=== PATIENT | female | born 1975 | race Caucasian/White ===

== ENCOUNTER → 2019-04-27 | Outpatient (CLI) | payer SELFPAY ==
[2019-04-27 15:14] LABS: BASO # 0.1 x10^3/uL (0.0-0.2); BASO % 1 % (0-3); EOS # 0.1 x10^3/uL (0.0-0.7); EOS % 1 % (0-3); HEMATOCRIT 42.5 % (36.0-47.0); HEMOGLOBIN 14.2 g/dL (12.0-15.5); LYMPH # 2.9 x10^3/uL (1.0-4.8); LYMPH % 26 % (24-48); MEAN CORPUSCULAR HEMOGLOBIN 30 pg (25-35); MEAN CORPUSCULAR HGB CONC 34 g/dL (31-37); MEAN CORPUSCULAR VOLUME 90 fL (79-100); MONO # 0.7 x10^3/uL (0.0-1.1); MONO % 6 % (0-9); NEUT # 7.5 x10^3/uL (1.8-7.7); NEUT % 66 % (31-73); PLATELET COUNT 210 x10^3/uL (140-400); RED BLOOD COUNT 4.71 x10^6/uL (3.50-5.40); RED CELL DISTRIBUTION WIDTH 14.7 % (11.5-14.5); WHITE BLOOD COUNT 11.3 x10^3/uL (4.0-11.0)
[2019-04-27 15:30] LABS: ALBUMIN 3.6 g/dL (3.4-5.0); ALBUMIN/GLOBULIN RATIO 0.8 (1.0-1.7); CALCIUM 9.3 mg/dL (8.5-10.1); CREATININE 0.8 mg/dL (0.6-1.0); GFR 78.7; POTASSIUM 4.4 mmol/L (3.5-5.1); TOTAL BILIRUBIN 0.2 mg/dL (0.2-1.0)
--- NOTE | 2019-04-27 15:55 | RAD ---
AP and Lateral Views of the Chest 04/27/2019 2:20 PM Indication: Preoperative Comparison: None Findings: Calcified lymph nodes in the middle lobe. No pneumothorax, pleural effusion, or focal consolidation is seen. Heart size is normal. Bony thorax is intact. Impression: No evidence of acute cardiopulmonary process. Electronically signed by: Juan Alberto Vasquez MD (04/27/2019 3:52 PM) [id number]
== END | disposition home or self-care (01) ==
LOC: SURGPAT 14:05
PROVIDERS: ATTEND Obstetrics & Gynecology
DX: Z01.818 Encounter for other preprocedural examination (principal); F17.200 Nicotine dependence, unspecified, uncomplicated; Z88.8 Allergy status to other drugs, medicaments and biological substances
CPT/HCPCS: 36415; 71046; 80053; 85025

== ENCOUNTER 2019-05-05 05:45 | Observation (INO) | payer SELFPAY ==
[~2019-05-05] VITALS: Ht 171.4 cm; Wt 244.0 kg
[2019-05-05] VITALS (11 sets, daily range): BP systolic 101–133; BP diastolic 61–88
[2019-05-05] MEDS ORDERED: BUPIVACAINE-EPI 0.25%-1:200000 MPF 30 ML VIAL. INJ ONE (06:00)
[2019-05-05] MEDS ORDERED: CLINDAMYCIN 900MG PREMIX 50 ML IV PRN (06:00)
[2019-05-05] MEDS ORDERED: ROCURONIUM 50 MG/5 ML VIAL. ONE (06:42)
[2019-05-05] MEDS ORDERED: ONDANSETRON PF 4 MG/2 ML VIAL. ONE (06:42)
[2019-05-05] MEDS ORDERED: PROPOFOL 20 ML IV ONE (06:42)
[2019-05-05] MEDS ORDERED: DEXAMETHASONE SOD PHOS 4 MG/ML VIAL ONE ×2 (06:42→07:12)
[2019-05-05] MEDS ORDERED: LIDOCAINE 2% PF 5 ML VIAL. ONE (06:42)
[2019-05-05] MEDS ORDERED: PROCHLORPERAZINE 10 MG/2 ML VIAL. IV PRN (07:00)
[2019-05-05] MEDS ORDERED: fentaNYL PF VIAL 100 MCG/2 ML VIAL IV PRN (07:00)
[2019-05-05] MEDS ORDERED: MORPHINE SULFATE 2 MG/ML VIAL. IV PRN ×2 (07:00→10:30)
[2019-05-05] MEDS ORDERED: ONDANSETRON PF 4 MG/2 ML VIAL. IV PRN ×2 (07:00→10:30)
[2019-05-05] MEDS ORDERED: IV RINGERS,LACTATED 1000ML 1,000 ML IV SCH (07:00)
[2019-05-05] MEDS ORDERED: LIDOCAINE 1% PF 2 ML VIAL. ID PRN (07:00)
[2019-05-05] MEDS ORDERED: HYDROmorphone 2 MG/ML VIAL IV PRN (07:00)
[2019-05-05] MEDS ORDERED: ESTROGENS, CONJ VAGINAL CREAM 30GM TUBE. ONE (07:05)
[2019-05-05] MEDS ORDERED: INDIGOTINDISULFONATE SODIUM 40 MG/5 ML AMPUL. ONE (07:06)
[2019-05-05] MEDS ORDERED: KETOROLAC 30 MG/ML VIAL. ONE (07:13)
[2019-05-05] MEDS ORDERED: MIDAZOLAM HCL/PF 2 MG/2 ML VIAL. ONE (07:13)
[2019-05-05] MEDS ORDERED: FAMOTIDINE 20 MG/2 ML VIAL ONE (07:13)
[2019-05-05] MEDS ORDERED: KETAMINE HCL IN NACL, ISO-OSM 50 MG/5 ML SYRINGE ONE (07:13)
[2019-05-05] MEDS ORDERED: fentaNYL PF VIAL 100 MCG/2 ML VIAL ONE ×2 (07:13→11:07)
[2019-05-05] MEDS ORDERED: NEOSTIGMINE METHYLSULFATE 5 MG/5 ML SYRINGE. ONE (09:34)
[2019-05-05] MEDS ORDERED: DESFLURANE > 120 MINUTES IH ONE (09:34)
[2019-05-05] MEDS ORDERED: GLYCOPYRROLATE 1 MG/5 ML VIAL. ONE (09:34)
[2019-05-05] MEDS ORDERED: ZOLPIDEM 5 MG TABLET. PO PRN (10:30)
[2019-05-05] MEDS ORDERED: diphenhydrAMINE 50 MG/ML VIAL IV PRN (10:30)
[2019-05-05] MEDS ORDERED: LACTULOSE 20 GM/30 ML SOLUTION. PO PRN (10:30)
[2019-05-05] MEDS ORDERED: NALOXONE 0.4 MG/ML VIAL. IV PRN (10:30)
[2019-05-05] MEDS ORDERED: CALCIUM CARBONATE 500 MG TAB.CHEW PO PRN (10:30)
[2019-05-05] MEDS ORDERED: 0.9 % SODIUM CHLORIDE 10 ML DISP.SYRIN. IV PRN (10:30)
[2019-05-05] MEDS ORDERED: SIMETHICONE 80 MG TAB.CHEW PO PRN (10:30)
[2019-05-05] MEDS ORDERED: diphenhydrAMINE HCL 25 MG CAPSULE PO PRN (10:30)
[2019-05-05] MEDS ORDERED: oxyCODONE/APAP 5/325 1 TAB TABLET PO PRN (10:30)
[2019-05-05] MEDS ORDERED: MAGNESIUM HYDROXIDE 2,400 MG/30 ML ORAL.SUSP. PO PRN (10:30)
[2019-05-05] MEDS ORDERED: MAG HYDROX/ALUMINUM HYD/SIMETH 30 ML ORAL.SUSP PO PRN (10:30)
--- NOTE | 2019-05-05 10:44 | PDOC ---
BRIEF OPERATIVE NOTE Date: May 05, 2019 Pre-Op Diagnosis DUB Post-Op Diagnosis same plus left sided pelvic adhesions and left ovarian cyst Procedure Performed LAVH, bilateral salpingectomy, left ovarian cystectomy, adhesiolysis Surgeon Dr. Colleen Garner Feather Maker GAUDENCIO Candelario Anesthesiologist Dr. Cruz Anesthesia Type: General Blood Loss 60cc IV Fluid 1300cc Urine Output 75cc clear and concentrated via krishnamurthy Specimens Obtained cervix, uterus, bilateral tubes, left ovarian cyst wall Findings mildly enlarged RV uterus, normal right tube and ovary, left ovary with small benign appearing cyst but adhesed to desc colon and left sidewall Complications none Operative Note [id number] COLLEEN GARNER MD May 05, 2019 10:44
--- NOTE | 2019-05-05 11:09 | PDOC ---
SURGICAL PROGRESS NOTE Subjective Pt doing well. Much better than this morning. Still some pain but has eaten, walked the halls and steady on her feet. Continues to use the restroom without problems. Vital Signs Vital Signs Date Time Temp Pulse Resp B/P (MAP) Pulse Ox O2 Delivery O2 Flow Rate FiO2 05/05/19 10:34 98.9 80 16 119/73 99 Room Air 6 98.9 Simple Mask Labs Laboratory Tests Test 05/05/19 06:08 Bedside Urine HCG, Qualitative Hcg negative (Negative) Laboratory Tests Test 05/05/19 06:08 Bedside Urine HCG, Qualitative Hcg negative (Negative) Assessment/Plan will continue ambulation explained with small hematoma could be normal to see dark blood break up with heat and massage through the suprapubic incision will see what repeat hgb shows if stable and wants to go home could do after that if any significant drop or concerns, could stay one more night and repeat in am needs to shower, ambulate here so make sure ok to go home YESSENIA ENCARNACION MD May 05, 2019 11:09
[2019-05-05] MEDS: fentaNYL PF VIAL 100 MCG/2 ML VIAL IV PRN ×2 (11:10→11:29)
--- NOTE | 2019-05-05 12:00 | OP ---
DATE OF SURGERY: 05/05/2019 PREOPERATIVE DIAGNOSIS: Dysfunctional uterine bleeding. POSTOPERATIVE DIAGNOSES: Dysfunctional uterine bleeding with left ovarian cyst and left pelvic adhesions. SURGERY PERFORMED: Laparoscopic-assisted vaginal hysterectomy, bilateral salpingectomy, left ovarian cystectomy and adhesiolysis. SURGEON: Yessenia Garner MD DATA INPUT CLERK: GAUDENCIO Patterson ANESTHESIOLOGIST: Dr. Martin. ANESTHESIA: General. ESTIMATED BLOOD LOSS: 60 mL. URINE OUTPUT: 75 mL of clear and concentrated via Valentin catheter. INTRAVENOUS FLUIDS: 1300 mL of crystalloid. FINDINGS: A mildly enlarged retroverted uterus. Normal right tube and ovary. Left tube appeared normal but it was adhesed to the ovary which was kind of stuck to the descending colon and pelvic sidewall. The descending colon on the left side was stuck to the left lower pelvic sidewall as well. COMPLICATIONS: None. DESCRIPTION OF PROCEDURE: This patient was taken to the operating room where general anesthesia was placed. The patient was placed in a dorsal lithotomy position in [facility]. The patient's abdomen and vagina were both prepped and draped in the normal sterile fashion and a Valentin catheter had been inserted under sterile technique. Upon my arrival, a timeout was performed. Once everyone agreed, a bivalve speculum was placed in the patient's vagina. A single-tooth tenaculum was used to grasp the anterior lip of the cervix, 10-12 mL of 0.25% Marcaine with epinephrine was used to circumferentially inject around the cervix for both hemodissection and hemostatic purposes later. The Valtchev uterine manipulator was placed through the endocervical os, locked on the single tooth tenaculum and the bivalve speculum was then removed. Top gloves were discarded and changed. Attention was then turned to the abdomen where a small supraumbilical skin incision was made with the scalpel. A curved Marti was used to dissect through the subcuticular layer to the fascia. The 5 mm Visiport was used to directly enter the abdominal cavity. Opening patient pressure was 5-6 mmHg. Carbon dioxide gas was used to then appropriately insufflate the abdominal cavity to maintain a pressure of 15 mmHg. The patient was placed in Trendelenburg position and initially the inside of the abdominal wall looked clear. So at this point, we looked to the patient's left side transilluminating the abdominal wall as well as we could, given body habitus, finding an area clear of any vasculature. I did inject the middle incision before making it and then putting the port in. Now, I am injecting the right and left lateral areas where we were going to go for a total of 12 mL of 0.25% Marcaine and epinephrine between all 3 abdominal port sites. Once that was injected, a small incision was made on that left side and the 5 mm trocar was placed under direct visualization without difficulty. A 4-5 mL of air was placed in the cuff of this to make sure it would not come out. The camera was moved laterally to look at the umbilical port. It was indeed clear. A 4-5 mL of air was placed in this port as well. The camera was moved back to the midline where the right lower quadrant port was placed again, finding an area clear of any vasculature, injecting the skin, making a small incision and placing the trocar in under direct visualization without difficulty. At this point, the right tube and ovary were noted to be normal with no adhesions. The ureter could be seen coursing low in the normal expected area of the pelvis and peristalsing. The uterus was mildly enlarged and retroverted, but the anterior bladder looked good. There were no significant adhesions involving the right tube and ovary or uterus itself; however, the colon was adhesed slightly above the level of the left infundibulopelvic ligament. Tracing that to find the left tube and ovary, it was adhesed slightly under the descending colon. I was able to find the tube gently pull it up and peel off the epiploicae, the filmy adhesions. It was not the actual colon itself. It was the fat pad around it that was adhesed to the left ovary. It was an actually stuck to the sidewall, the colon is on the lower but the ovary was just stuck to the fat of the descending colon. So I could get the left tube and ovary, there was a small cyst on the left ovary that was easily peeled off and the cyst wall was not bleeding. She wished to retain ovaries as she was only 44. So we went above the ovary below the tube and just did a salpingectomy, then crossing the left with the LigaSure. The left utero-ovarian pedicle and the left round ligament were all cauterized and cut with the LigaSure. This was done exactly the same on the right side, elevating the right tube and ovary, going above the ovary, below the tube, doing a salpingectomy, crossing the right uterine ovarian pedicle, cauterizing and cutting with the LigaSure and then the same thing cauterizing and cutting the right round ligament. At this point, I was able to make the bladder flap sharply by elevating it with Maryland's through one port and using the monopolar hook to gently make a cut and peel it down, so the bladder flap was made sharply and then peeled down bluntly. Once the bladder was down, I went back to the right side and obtain the uterine vessels, cauterizing and cutting, then staying inside that pedicle and hugging the cervix and uterus, going down to the level of the uterosacrals. The right side was completely free and done. So at this point, attention was turned to the left side where I made sure we went down and met that bladder flap anteriorly and got it down and then getting the uterine vessels and hugging and staying vertical on the cervix and uterus, down as close to the level of the uterosacral as we could abdominally. The uterus itself was free and blanching and completely mobile. The ovaries were indeed left behind the left tube that was adhesed, did pull off during some of the manipulation and it was placed in the posterior cul-de-sac, but there was no active bleeding; in fact, hardly any bleeding from above, so we took out all instruments and attention was turned below. The single tooth and Valtchev were removed. A weighted speculum was placed in the patient's vagina. Thyroid Jose clamps were placed on the anterior and posterior lips of the cervix respectively. A scalpel was used to make a circumferential incision in the cervix. The suction scanner operator tip was used to just gently push up on the anterior bladder peritoneum, so I could gently peel it off the anterior cervix sharply with a knife and then I took an open Ray-Sherley 4 x 4 to gently push it off the cervix. It went up very easily and we were able to enter the anterior cul-de-sac as well, so a curved Greenlawn was placed here. That 4 x 4 was removed and a curved Greenlawn was placed in the anterior cul-de-sac. The cervix was elevated and the posterior cul-de-sac was sharply entered with curved Mccallum scissors. A #0 Vicryl stitch was used to secure the posterior peritoneum here to the vaginal cuff. Before I even put the stitch and I was able to get to that tube, the left tube detached and I was able to pull it out and passed it off for pathology and then I put a #0 Vicryl stitch in, securing the posterior peritoneum to the vaginal cuff, tying it and tagging it with a curved Marti clamp and cutting and passing the needle off. The short weighted speculum was removed and replaced with the long weighted Grace speculum in the posterior cul-de-sac. Curved Deisy clamps x 2 were placed on the patient's left uterosacral ligament where they were doubly clamped with curved Deisy's, cut with curved Mccallum scissors and suture ligated x 2 with 0 Vicryl. Second one was taken through the vaginal cuff, securing uterosacral ligament to the vaginal cuff. After it was tied, it was tagged with a straight Marti and the needle was cut and passed off. This was done exactly the same on the patient's right side. Double clamping the uterosacrals with curved Deisy's, cutting with curved Mccallum scissors and suture ligating x 2 with 0 Vicryl and then taking the second one through the vaginal cuff on the right side, tagging it with a straight Marti clamp and cutting and passing the needle off. The remaining pedicle on both sides, but starting on the patient's left again was delineated with the mixture and the vaginal LigaSure was used to cauterize and cut the remaining pedicle. The left side was free. This was done exactly same on the right. The mixture was taken around the remaining pedicle through the cardinal or broad ligament. It was cauterized with the vaginal LigaSure and cut, and there was no active bleeding. Cervix, uterus and other tube were delivered in total. Again, remember the left one came out detached, it was already passed off. A sponge stick was used to examine the pedicles, they were hemostatic. I could not get up as high as the anterior bladder peritoneum as it was high, so I just kind of went low right inside the cuff, took a 2-0 Vicryl through the right inside the vaginal cuff. The left uterosacral ligament, posterior peritoneum and right uterosacral ligament, thus closing the peritoneum in a pursestring like fashion. Once this was done, the right and left uterosacral tags were clipped and the cuff was closed in an anterior to posterior running locked fashion with a full length 2-0 Vicryl. Once this was done, all sponge, lap and needle counts were correct x 2 below and all gloves were discarded and changed, and attention was turned back above for a second look. Upon initial inspection, there was no active bleeding. The right and left pericolic gutters were clear. There was just some slight oozing from the middle part of the posterior cuff, but the bladder peritoneum looked good, the right ovary looked good. This was actually when I performed the cystectomy. I left it alone until the end and I went ahead and decided since it was take to peel it off. I was able to peel off the cyst wall and remove it through the right lower quadrant port. I did place Tisseel and Michael over the cyst wall and it was hemostatic. I did place Tisseel over the vaginal cuff as well and again the right ovary, the bladder, the cuff looked good but there was a small drip very, very, very small from the posterior cuff, so I went ahead and got Michael and placed it on this with excellent results and just went ahead and placed Michael. That is when I put Michael over the ovarian cyst wall or the remaining ovary where the cyst wall was removed on the left as well, but it peeled off nicely and it was all passed off for permanent pathology as well. Once all this was done, it was hemostatic. Gas was released from the left lower quadrant port, it was removed. There was a very slight rundown upon initial removal. I looked at it several times, went back and forth, pushed on it and there was no active bleeding. I even released gas and watched it, and there was no active bleeding. Reinsufflated the gas, deflated the balloon on the right side to get out, it was completely hemostatic and looked back at the vaginal cuff. It remained hemostatic with a white powdery Michael, looked back at the left side with no continued rundown at all. Edges were dry, so I deflated the cuff on the middle and gas was released from the supraumbilical port. Once this was done, all three port sites were closed with 4-0 nylon and the patient is being awakened from anesthesia. YESSENIA GARNER MD DR: Giulia JOB#: [id number] / [id number]
--- NOTE | 2019-05-05 13:10 | NUR ---
Patient stated she smokes 1 1/2 packs of cigarettes per day, refuses cessation counseling, also refuses any kind of nicotine replacement, like nicotine patch, gum, lozenges, etc.
[2019-05-05] MEDS: HYDROcodone/APAP 5/325MG 1 TAB TABLET PO PRN ×2 (13:19→22:04)
[2019-05-06] VITALS: BP 123/69
[2019-05-06] MEDS: HYDROcodone/APAP 5/325MG 1 TAB TABLET PO PRN ×2 (02:10→08:03)
[2019-05-06 04:02] LABS: CALCIUM 8.8 mg/dL (8.5-10.1); CREATININE 0.7 mg/dL (0.6-1.0); GFR 91.8; POTASSIUM 4.9 mmol/L (3.5-5.1)
[2019-05-06 07:00] VITALS: BP 119/73
--- NOTE | 2019-05-06 08:52 | PDOC ---
SURGICAL PROGRESS NOTE Subjective Doing well without complaints. Scant vag spotting with urination. Tolerating regular diet without n/v. Voiding without catheter, ambulating well, passing gas and has already even had a small stool. Wants to go home Vital Signs Vital Signs Date Time Temp Pulse Resp B/P (MAP) Pulse Ox O2 Delivery O2 Flow Rate FiO2 05/06/19 08:03 16 96 Room Air 05/06/19 00:00 97.4 49 123/69 (87) 97.4 05/05/19 20:00 2.0 I&O Intake and Output 05/06/19 07:00 Intake Total 760 ml Output Total 485 ml Balance 275 ml Intake Oral 100 ml IV Total 660 ml Output Urine Total 425 ml Estimated Blood Loss 60 ml PATIENT HAS A CRUZ: No General: Alert, Oriented X3, Cooperative, No acute distress HEENT: Atraumatic Heart: Regular rate Abdomen: Soft, No tenderness, Other (all port sites c/d/i bandages removed) Extremities: No clubbing, No cyanosis, No edema, No tenderness/swelling Skin: No rashes, No breakdown Neuro: Normal speech Psych/Mental Status: Mental status NL, Mood NL Labs Laboratory Tests Test 05/05/19 06:08 05/06/19 03:15 Bedside Urine HCG, Qualitative Hcg negative (Negative) Hematocrit 37.4 % (36.0-47.0) Sodium Level 142 mmol/L (136-145) Potassium Level 4.9 mmol/L (3.5-5.1) Chloride Level 109 mmol/L (98-107) Carbon Dioxide Level 26 mmol/L (21-32) Anion Gap 7 (6-14) Blood Urea Nitrogen 10 mg/dL (7-20) Creatinine 0.7 mg/dL (0.6-1.0) Estimated GFR (Cockcroft-Gault) 91.8 Glucose Level 118 mg/dL (70-99) Calcium Level 8.8 mg/dL (8.5-10.1) Laboratory Tests Test 05/06/19 03:15 Hematocrit 37.4 % (36.0-47.0) Sodium Level 142 mmol/L (136-145) Potassium Level 4.9 mmol/L (3.5-5.1) Chloride Level 109 mmol/L (98-107) Carbon Dioxide Level 26 mmol/L (21-32) Anion Gap 7 (6-14) Blood Urea Nitrogen 10 mg/dL (7-20) Creatinine 0.7 mg/dL (0.6-1.0) Estimated GFR (Cockcroft-Gault) 91.8 Glucose Level 118 mg/dL (70-99) Calcium Level 8.8 mg/dL (8.5-10.1) I have reviewed the following labs, vitals, nursing Cardiovascular: No pertinent hx GI: No pertinent hx Heme/Onc: No pertinent hx Rheumatologic: No pertinent hx Assessment/Plan POD#1 s/p LAVH/bilateral salpingectomy/left ovarian cystectomy/adhesiolysis Routine PO care d/c to home later today NPV x 6 weeks light/limited activity x 2 weeks keep scheduled follow up appt next week with me NO driving on narcotic pain meds already has hydrocodone filled at home call or return sooner for any other questions or concerns not limited to but including pain unrelieved with pain meds, increased or unexplained vaginal bleeding or T>100.4 YESSENIA ENCARNACION MD May 06, 2019 08:52
--- NOTE | 2019-05-06 08:55 | PDOC3 ---
Discharge Summary Visit Information Date of Admission: May 05, 2019 Date of Discharge: May 06, 2019 Final Diagnosis DUB, left ovarian cyst, adhesions Brief Hospital Course Allergies Allergies Coded Allergies Type Severity Reaction Last Updated Verified naproxen Allergy Severe Shortness of Air 05/05/19 Yes cephalexin Allergy Intermediate 04/27/19 Yes Vital Signs Vital Signs Date Time Temp Pulse Resp B/P (MAP) Pulse Ox O2 Delivery O2 Flow Rate FiO2 05/06/19 08:03 16 96 Room Air 05/06/19 00:00 97.4 49 123/69 (87) 97.4 05/05/19 20:00 2.0 Lab Results Laboratory Tests Test 05/05/19 06:08 05/06/19 03:15 Bedside Urine HCG, Qualitative Hcg negative (Negative) Hematocrit 37.4 % (36.0-47.0) Sodium Level 142 mmol/L (136-145) Potassium Level 4.9 mmol/L (3.5-5.1) Chloride Level 109 mmol/L (98-107) Carbon Dioxide Level 26 mmol/L (21-32) Anion Gap 7 (6-14) Blood Urea Nitrogen 10 mg/dL (7-20) Creatinine 0.7 mg/dL (0.6-1.0) Estimated GFR (Cockcroft-Gault) 91.8 Glucose Level 118 mg/dL (70-99) Calcium Level 8.8 mg/dL (8.5-10.1) Laboratory Tests Test 05/06/19 03:15 Hematocrit 37.4 % (36.0-47.0) Sodium Level 142 mmol/L (136-145) Potassium Level 4.9 mmol/L (3.5-5.1) Chloride Level 109 mmol/L (98-107) Carbon Dioxide Level 26 mmol/L (21-32) Anion Gap 7 (6-14) Blood Urea Nitrogen 10 mg/dL (7-20) Creatinine 0.7 mg/dL (0.6-1.0) Estimated GFR (Cockcroft-Gault) 91.8 Glucose Level 118 mg/dL (70-99) Calcium Level 8.8 mg/dL (8.5-10.1) Brief Hospital Course Ms. Mullins is a 44 old female who presented with DUB. She underwent and LAVH with bilateral salpingectomy yesterday and was found to have a left ovarian cyst so did cystectomy and adhesions so also adhesiolysis was performed. She has had an unremarkable postoperative course and remained AFVSS, hct this am good, ambulating well, voiding without catheter, tolerating regular diet and passing gas. Pt wants to go home Assessment Assessment POD#1 s/p LAVH/bilateral salpingectomy/left ovarian cystectomy/adhesiolysis Routine PO care d/c to home later today NPV x 6 weeks light/limited activity x 2 weeks keep scheduled follow up appt next week with me NO driving on narcotic pain meds already has hydrocodone filled at home call or return sooner for any other questions or concerns not limited to but including pain unrelieved with pain meds, increased or unexplained vaginal bleeding or T>100.4 Discharge Information Scheduled Info (No Known Medications Prior To Admisstion) Each, 1 EACH MC DAILY for NA, (Reported) Entered as Reported by: SCOTTY JENKINS on 04/27/19 [id number] Last Action: Reviewed on 05/05/19624 by SCOTTY JENKINS Patient Instructions Patient Instructions POD#1 s/p LAVH/bilateral salpingectomy/left ovarian cystectomy/adhesiolysis Routine PO care d/c to home later today NPV x 6 weeks light/limited activity x 2 weeks keep scheduled follow up appt next week with me NO driving on narcotic pain meds already has hydrocodone filled at home call or return sooner for any other questions or concerns not limited to but including pain unrelieved with pain meds, increased or unexplained vaginal bleeding or T>100.4 YESSENIA ENCARNACION MD May 06, 2019 08:55
--- NOTE | 2019-05-06 10:05 | NUR ---
Discharge Note: DIPAK HOBBS Discharge instructions and discharge home medications reviewed with Patient and a copy given. All questions have been answered and understanding verbalized. The following instructions and handouts were given: Discharge and F/U Instructions Discontinued lines and drains: Left Peripheral IV removed, Catheter intact. Patient discharged to Home with Self-Care via Family Member Private Vehicle
--- NOTE | 2019-05-09 19:07 | PATHOLOGY ---
[facility] Accession Number: [id number] . 01 Material submitted: . uterus - UTERUS, BILATERAL FALLOPIAN TUBES AND OVARIAN CYST WALL . 01 Clinical history: . Dysmenorrhea, menorrhagia, dysfunctional uterine bleeding . 02 Diagnosis: "Uterus, bilat fallopian tubes and ovarian cyst wall", hysterectomy and ovarian cystectomy: - Cervix with mild chronic cervicitis. - Endometrium with secretory pattern. - Myometrium with minimal histologic alterations. - Fallopian tubes, bilateral, with minial histologic alterations. - Ovarian cyst wall with scant ovarian stroma showing hemorrhagic corpus luteal cyst. (CLW:yves; 05/09/2019) QMS 05/09/2019 1320 Local . 02 Electronically signed: . Vikki Knott MD, Pathologist NPI- [id number] . 01 Gross description: . The specimen is received in formalin, labeled "Lovely Mullins, uterus, bilateral fallopian tubes, ovarian cyst wall" and consists of a 80 g uterus with attached cervix measuring 9.2 x 5.0 x 3.8 cm. Attached are the bilateral fimbriated fallopian tubes measuring 2.6 cm in length and 0.5 cm in diameter and 3.9 cm in length and 0.6 cm in diameter. Also received are 2 orange-espinoza fragments of tissue measuring 2.5 x 2.0 x 0.6 cm. The uterine serosa is pink-espinoza, smooth, and shiny. The slitlike 1.1 cm cervical os is surrounded by focally hemorrhagic espinoza ectocervical mucosa. The specimen is bivalved revealing a corrugated endocervical canal measuring 3.0 cm. The endometrial cavity is triangular measuring 4.2 cm in length and 2.4 cm in width which is lined by pink-red endometrium measuring 0.1-0.3 cm. The myometrium is pink-espinoza measuring up to 2.1 cm with no masses or lesions. . The shorter fallopian tube segment is purple, smooth, shiny. The longer fallopian tube segment is a ragged beth-espinoza. Sectioning each reveals a well-defined lumen and no gross lesions. Sectioning the 2 orange espinoza segment of tissue 2 orange cut surfaces. Clinical Science Consultant sections are submitted as follows: . A1: Anterior cervix A2: Posterior cervix A3: Anterior endomyometrium A4: Posterior endomyometrium A5: Longer fallopian tube A6: Bruner fallopian tube A7: Additionally received segments of orange tissue (SDY; 05/06/2019) SYU/SYU 05/06/2019 1527 Local . 02 Pathologist provided ICD-10: N72, N83.10, N94.6, N92.0 . 02 CPT . 844368 Specimen Comment: A courtesy copy of this report has been sent to [phone] Specimen Comment: Report sent to Performed at: 01 [facility] [address] [facility] [address], [place] [id number] MD Faraz Lynch MD Phone: [phone] Performed at: 02 [facility] [address] [place], [place] [id number] MD Anjel Estrada MD Phone: [phone]
== END 2019-05-06 09:58 | disposition home or self-care (01) ==
LOC: SURG 05:45 → EDUNIT# 07:30 → 3 NORTH 11:41
PROVIDERS: ADMIT Obstetrics & Gynecology; ATTEND Obstetrics & Gynecology
DX: N93.8 Other specified abnormal uterine and vaginal bleeding (principal); N83.202 Unspecified ovarian cyst, left side; Z90.710 Acquired absence of both cervix and uterus
CPT/HCPCS: 36415; 58552; 80048; 81025; 85014; 86850; 86900; 86901; 88307; A7015; G0378; G0379; J1100; J1885; J1956; J2001; J2250; J2405; J2704; J2710; J3010; J3490; J7030; J7120